=== PATIENT | female | born 1945 | race Caucasian/White ===

== ENCOUNTER → 2017-11-03 | Outpatient (CLI) | payer BC ==
[2017-11-03 12:46] LABS: BASO % 0.7 %; BASO ABS # 0.06 K/uL (0-0.2); EOS % 9.5 %; EOS ABS # 0.82 K/uL (0-0.5); HEMATOCRIT 43.9 % (37-47); HEMOGLOBIN 14.5 g/dL (12.0-16.0); IG# 0.01 K/uL (0.00-0.02); LYMPH % 19.6 %; LYMPH ABS # 1.69 K/uL (1.2-3.4); MEAN CELL VOLUME 88.9 fL (80-100); MEAN CORPUSCULAR HEMOGLOBIN 29.4 pg (25-34); MEAN PLATELET VOLUME 10.4 fL (7.4-10.4); MONO % 8.7 %; MONO ABS # 0.75 K/uL (0.11-0.59); NEUT % 61.4 %; PLATELET COUNT 352 K/uL (130-400); RED CELL DISTRIBUTION WIDTH CV 13.5 % (11.5-14.5); RED CELL DISTRIBUTION WIDTH SD 44.1 fL (36.4-46.3); WHITE BLOOD COUNT 8.63 K/uL (4.8-10.8)
[2017-11-03 13:13] LABS: BLOOD UREA NITROGEN 16 mg/dl (7-18); CALCIUM 9.2 mg/dl (8.5-10.1); CARBON DIOXIDE 31 mmol/L (21-32); CREATININE 1.04 mg/dl (0.60-1.20); GLUCOSE 98 mg/dl (70-99); POTASSIUM 4.2 mmol/L (3.5-5.1); SODIUM 138 mmol/L (136-145)
[2017-11-03 13:24] LABS: CHOLESTEROL 194 mg/dl (0-200); LDL CHOLESTEROL CALCULATED 118 mg/dl
== END | disposition home or self-care (01) ==
LOC: C.LABMFLN 06:56
PROVIDERS: ATTEND Family Medicine
DX: E78.5 Hyperlipidemia, unspecified (principal)

== ENCOUNTER 2019-03-28 19:59 | Observation (INO) ==
[2019-03-28 20:48] LABS: Basophils # (auto) 0.02 K/uL (0-0.2); Basophils % (auto) 0.4 %; Eosinophils # (auto) 0.01 K/uL (0-0.5); Eosinophils % (auto) 0.2 %; Hematocrit (blood only) 39.8 % (37-47); Hemoglobin 13.6 g/dL (12.0-16.0); Lymphocytes % (auto) 21.5 %; Mean Corpuscular Hgb Conc 34.2 g/dL (32-36); Mean Corpuscular Volume 84.3 fL (80-100); Monocytes % (auto) 16.1 %; Neutrophils # (auto) 3.45 K/uL (1.4-6.5); Neutrophils % (auto) 61.8 %; Platelet Count 233 K/uL (130-400); RDW Coefficient of Variation 13.7 % (11.5-14.5); RDW Standard Deviation 42.7 fL (36.4-46.3); Red Blood Count 4.72 M/uL (4.2-5.4); White Blood Count 5.58 K/uL (4.8-10.8)
[2019-03-28 21:05] LABS: BUN Creatinine Ratio 11.2 (10-20); Calcium 9.7 mg/dl (8.5-10.1); Creatinine Clr Calc Pharmacy 31.2 ml/min; Est GFR (African American) 44.1; Potassium 3.4 mmol/L (3.5-5.1)
[2019-03-28] MEDS ORDERED: SODIUM CHLORIDE 0.9% 1000ML 1,000 ML IV ONE (21:17)
[2019-03-28] MEDS ORDERED: VANCOMYCIN HCL 1,000 MG in SODIUM CHLORIDE 0.9% 500 ML IV ONE (21:25)
[2019-03-28] MEDS ORDERED: VANCOMYCIN CONSULT ACTIVE PRN (21:25)
--- NOTE | 2019-03-28 23:09 | History & Physical Report ---
Date of Service March 28, 2019 Assessment & Plan (1) Cellulitis: 73yoF otherwise healthy presents with worsening L inner thigh cellulitis s/p insect bite 7 days ago. Cellulitis L inner thigh s/p insect bite Afebrile, no WBC elevation BCx 2 pending Started on rocephin Received vanc 1g x 1 in the ED for MRSA coverage Continue to monitor clinically for improvement HAMLET BUN/Cr 16/1.3 - baseline Cr 1 Received 1L IVF in the ED On NS 125cc/hr Hypokalemia K 3.4 KCL 20meq x 1 ordered Monitor BMP Code: Full DVT prop: low risk, SCD only, encourage ambulation Dispo: med/surg History of Present Illness Chief Complaint: Cellulitis Primary Care Provider: Aryan Bah DO 73yoF otherwise healthy presents with worsening cellulitis s/p insect bite 7 days ago. Pt reports noticed bite on L inner thigh last week wednesday, 7 days ago and applied antibiotic cream on it. However she noticed worsening redness, warmth and tenderness at site and went to see PCP yesterday. Received 1g rocephin yesterday and was started bactrim BID x 10 days today by PCP. However, today noticed erythema worsening and presented to the ED. A/w chills, nausea and lightheadedness. Denies any headache, cp, sob, abdominal pain, n/v, diarrhea/constipation, dysuria. ED course: received vanc x 1 and 1L IVFs Allergies Allergy/AdvReac Type Severity Reaction Status Date / Time No Known Allergies Allergy Verified 03/28/19 21:33 Home Medications Home Medications Medication Instructions Recorded Confirmed Type aspirin 81 mg tablet,delayed 81 mg PO DAILY #30 tab 03/27/19 03/28/19 Rx release multivitamin tablet 1 tab PO DAILY #30 tab 03/27/19 03/28/19 Rx sulfamethoxazole 800 1 tab PO BID 10 Days #20 tab 03/27/19 03/28/19 Rx mg-trimethoprim 160 mg tablet Past Med/Surg History Medical History H/O tooth extraction Surgical History Hx laparoscopic cholecystectomy Social History Preferred Language: Swedish Communication Ability: Effective Mother Superior Required: No Beliefs That Will Affect Care: None Current Living Situation: Other Current Living Situation Comment: friend lives with her in her home Other Information That Helps Us Care for You: No Feels Safe at Home: Yes Safety Concerns: Feels Safe At This Time Smoking Status: Current every day smoker Tobacco Type: cigarettes Cigarettes Per Day: 10 Do You Dip or Chew Tobacco: No Second Hand Exposure: No Hx Alcohol Use: No Hx Substance Use: No Review of Systems Review of Systems: As per HPI Physical Exam Physical Exam: General: In NAD CV: RRR, no m/r/g Pulm: CTAB equal breath sounds bilaterally Abdomen: +BS, NTTP in all quadrants, non-distended Skin: Erythematous L inner thigh cirumferential area about 15 by 15cm with central induration, warm to touch, tender to palpation, no fluctuance noted LE: no calf pain, no LE edema Results & Data Vital Signs (Past 12 Hours) Vital Signs Temp Pulse Pulse Resp BP BP Pulse Ox 03/28/19 22:44 76 18 124/68 94 03/28/19 21:30 66 18 126/59 L 97 03/28/19 20:02 36.6 C 89 18 151/81 H 94 Laboratory Results Abnormal lab results 03/28/19 03/28/19 Range/Units 20:36 20:36 [place] # (Auto) 0.90 H (0.11-0.59) K/uL Sodium 134 L (136-145) mmol/L Potassium 3.4 L (3.5-5.1) mmol/L Creatinine 1.39 H (0.6-1.2) mg/dl Glucose 114 H (70-99) mg/dl Medications Administered Current Inpatient Medications Vancomycin HCl 1,000 mg/ (Sodium Chloride) 520 mls @ 200 mls/hr IV NOW ONE; Protocol Stop: 03/29/19 00:00 Last Admin: 03/28/19 21:49 Dose: 200 mls/hr Documented by: Miscellaneous Information (Consult) 1 ea N/A UD PRN PRN Reason: Consult Stop: 04/27/19 21:24 Code Status & VTE Plan Code Status Full Supervising Physician Co-Signing Physician Notes Attending addendum: I have physically seen this patient, have supervised the medical residents activities, and agree with the H&P unless as otherwise noted. Assessment and Plan: Insect bite cellulitis left inner thigh- Received vancomycin 1 g IV in the ED. Place on ceftriaxone 1 g IV daily. Start Bactrim DS p.o. twice daily. She is showing some signs of systemic involvement. I asked her family to look around her house to see if there may be a spiders nest, as this has the look of a spider bite. She had Lyme testing done on 02/13/2019 which was negative, but would suggest ordering it again. Hypokalemia/HAMLET- Given oral potassium replacement. Continue rehydration with NS at 125 mils per hour. Repeat laboratories in a.m. Remainder of orders and notations as noted. PG Care Time/CCT Total # of Minutes Spent Total Time Spent with Patient: Total time spent is greater than 50% in coordination of care (as documented) at patient's floor/unit and/or counseling patient: Resident Activity Tracking Resident Involvement: Resident Care Provided Care Provided: Adult Hospital Medicine
[2019-03-28] MEDS ORDERED: POTASSIUM CHLORIDE 20 MEQ TABCR PO STA (23:55)
[2019-03-28] MEDS ORDERED: ONDANSETRON INJ 2 MG/ML 2 ML VIAL IV PRN (23:55)
[2019-03-28] MEDS ORDERED: ACETAMINOPHEN 325 MG TAB PO PRN (23:55)
[2019-03-29] MEDS: SODIUM CHLORIDE 0.9% 1000ML 1,000 ML IV SCH ×2 (00:24→08:55)
[2019-03-29] MEDS: cefTRIAXone SODIUM 1,000 MG in DEXTROSE 5% 50 ML IV SCH (00:24)
--- NOTE | 2019-03-29 00:42 | Emergency Department Note ---
Entered by Sylvain Antunez acting as a scribe for Akash Aguilar M.D. History of Present Illness General Chief complaint: Bite Stated complaint: BUG BITE IS GETTING WORSE L LEG Source: patient History of Present Illness Provider complaint: Bite Onset (ago): week(s) 1 Location: lower extremity and left Maximum Pain Intensity: 8 Current Pain Intensity: 8 Associated symptoms: + denies other symptoms (abd pain), + fever/chills, + loss of appetite and + other (nausea) Treatments prior to arrival: none (abx cream) The patient is a 73 year old female who presents to the Emergency Room with complaints of a bite that began 1 week ago. The patient states that 1 week ago, she noticed a small "mosquito bite" that was itchy. She adds she used antibiotic cream at that time. She states that the size of the red area has been getting worse. The patient was seen by her doctor 1 day ago, who told her if the size of the bite got bigger, to come to the ED. The patient notes that what the doctor gave her (Bactrim) has not been working. She reports some drainage from the bite initially, but not currently. She adds that she has had fevers and has not been feeling well for the past few days. The patient also notes a lack of appetite and nausea. She denies abd pain. Home Medications Home Medications Medication Instructions Recorded Confirmed Type aspirin 81 mg tablet,delayed 81 mg PO DAILY #30 tab 03/27/19 03/28/19 Rx release multivitamin tablet 1 tab PO DAILY #30 tab 03/27/19 03/28/19 Rx sulfamethoxazole 800 1 tab PO BID 10 Days #20 tab 03/27/19 03/28/19 Rx mg-trimethoprim 160 mg tablet Allergies Allergy/AdvReac Type Severity Reaction Status Date / Time No Known Allergies Allergy Verified 03/28/19 21:33 Past Med/Surg History Medical History H/O tooth extraction Surgical History Hx laparoscopic cholecystectomy Social History Preferred Language: Faroese Communication Ability: Effective Equine Breeder Required: No Beliefs That Will Affect Care: None Current Living Situation: Other Current Living Situation Comment: friend lives with her in her home Other Information That Helps Us Care for You: No Feels Safe at Home: Yes Safety Concerns: Feels Safe At This Time Smoking Status: Current every day smoker Tobacco Type: cigarettes Cigarettes Per Day: 10 Do You Dip or Chew Tobacco: No Second Hand Exposure: No Hx Alcohol Use: No Hx Substance Use: No Review of Systems See HPI for pertinent positives & negatives. and A total of 10 systems reviewed and were otherwise negative Physical Exam Vital Signs Vital Signs - 24 hr 03/28/19 20:02 03/28/19 21:30 03/28/19 22:44 Temperature 36.6 C Temperature Source Oral Sepsis Recent Fever Within 48 Hours No Sepsis New/Unexplained Change in Mental Status No Sepsis Action Taken by Nursing No Action Required Pulse Rate 89 Pulse Rate [Right Finger] 66 76 Pulse Rhythm [Right Finger] Regular Regular Pulse Strength [Right Finger] Normal Normal Respiratory Rate 18 18 18 Respiratory Effort / Characteristics Non-Labored Non-Labored Non-Labored Respiratory Depth Normal Normal Normal Respiratory Pattern Regular Regular Blood Pressure 151/81 H Blood Pressure [Right Arm] 126/59 L 124/68 Blood Pressure Mean 104 Blood Pressure Mean [Right Arm] 81 86 Blood Pressure Position [Right Arm] Sitting Sitting Pulse Oximetry 94 97 94 Oxygen Delivery Method Room Air Room Air Room Air GENERAL: Awake, alert, well-appearing, in no distress HENT: Normocephalic, atraumatic. EYES: Normal conjunctiva. Sclera non-icteric. NECK: Supple. No nuchal rigidity. RESPIRATORY: Clear to auscultation. No wheezes. Normal respiratory effort. CARDIAC: Normal rate. Normal rhythm. Extremities warm and well perfused. GI: Soft, non-distended. No tenderness to palpation. No rebound or guarding. No masses. RECTAL: Deferred. MUSCULOSKELETAL: Atraumatic. Chest examination reveals no tenderness. LOWER EXTREMITIES: Calves are equal size bilaterally and non-tender. No edema. 15 cm left inner thigh erythema, mild tenderness. NEURO: Normal sensorium. No sensory or motor deficits noted. No facial droop. SKIN: Warm and dry. No jaundice noted. Course 2015: The patient was evaluated in room B06. A complete history and physical exam was performed. 2150: I discussed the patient's case with Dr. Eduardo- [facility] Hospitalist. He will evaluate the patient for further management. Consultations Consultation #1: [id number]: I discussed the patient's case with Dr. Eduardo- [facility] Hospitalist. He will evaluate the patient for further management. Time: 21:50 Administered Medications Ceftriaxone Sodium 1,000 mg/ (Dextrose) 50 mls @ 100 mls/hr IV Q24H SABINA; Protocol Stop: 04/08/19 00:00 Last Admin: 03/29/19 00:24 Dose: 100 mls/hr Documented by: [id number] Sodium Chloride (Nss 1000ml) 1,000 mls @ 125 mls/hr IV .Q8H SABINA Stop: 04/27/19 23:54 Last Admin: 03/29/19 00:24 Dose: 125 mls/hr Documented by: [id number] Discontinued Medications Sodium Chloride (Nss 1000ml) 1,000 mls @ 999 mls/hr IV .Q1H1M ONE Stop: 03/28/19 22:17 Last Infusion: 03/28/19 23:05 Dose: 0 mls/hr Documented by: [id number] Admin: 03/28/19 21:21 Dose: 999 mls/hr Documented by: [id number] Vancomycin HCl 1,000 mg/ (Sodium Chloride) 520 mls @ 200 mls/hr IV NOW ONE; Protocol Stop: 03/29/19 00:00 Last Infusion: 03/29/19 00:28 Dose: 0 mls/hr Documented by: [id number] Admin: 03/28/19 21:49 Dose: 200 mls/hr Documented by: [id number] Potassium Chloride (Klor-Con M20) 20 meq PO NOW STA Stop: 03/28/19 23:56 Last Admin: 03/29/19 00:24 Dose: 20 meq Documented by: [id number] Medical Decision Making Differential Diagnosis Differential diagnosis: Etiologies such as contact dermatitis, viral exanthem, urticaria, allergic reaction, Chong-Greyson syndrome, toxic epidermal necrolysis, erythema multiforme, cellulitis, scabies, HSV, varicella, zoster, eczema, staph scalded skin syndrome, fungal infection, as well as others were entertained. Medical Records Attestation: I reviewed the patient's medical records. Home Medications Current Medication List: was personally reviewed by me Laboratory Data Attestation: I reviewed the patient's lab results. Result diagrams: 03/28/19 20:36 03/28/19 20:36 Lab Results 03/28/19 03/28/19 Range/Units 20:36 20:36 WBC 5.58 (4.8-10.8) K/uL RBC 4.72 (4.2-5.4) M/uL Hgb 13.6 (12.0-16.0) g/dL Hct 39.8 (37-47) % MCV 84.3 (80-100) fL MCH 28.8 (25-34) pg MCHC 34.2 (32-36) g/dL RDW Std Deviation 42.7 (36.4-46.3) fL RDW Coeff of Shruti 13.7 (11.5-14.5) % Plt Count 233 (130-400) K/uL MPV 10.0 (7.4-10.4) fL Immature Gran % (Auto) 0.0 % Neut % (Auto) 61.8 % Lymph % (Auto) 21.5 % [place] % (Auto) 16.1 % Eos % (Auto) 0.2 % Baso % (Auto) 0.4 % Immature Gran # (Auto) 0.00 (0.00-0.02) K/uL Neut # (Auto) 3.45 (1.4-6.5) K/uL Lymph # (Auto) 1.20 (1.2-3.4) K/uL [place] # (Auto) 0.90 H (0.11-0.59) K/uL Eos # (Auto) 0.01 (0-0.5) K/uL Baso # (Auto) 0.02 (0-0.2) K/uL Sodium 134 L (136-145) mmol/L Potassium 3.4 L (3.5-5.1) mmol/L Chloride 102 (98-107) mmol/L Carbon Dioxide 23 (21-32) mmol/L Anion Gap 9.0 (3-11) BUN 16 (7-18) mg/dl Creatinine 1.39 H (0.6-1.2) mg/dl Est Cr Clr Drug Dosing 31.2 ml/min Est GFR ( Amer) 44.1 Est GFR (Non-Af Amer) 38.0 BUN/Creatinine Ratio 11.2 (10-20) Glucose 114 H (70-99) mg/dl Calcium 9.7 (8.5-10.1) mg/dl Blood Pressure Blood Pressure Findings: Low blood pressure Blood Pressure Disposition: further management by hospitalist RASHEED Narrative Patient is a 73-year-old female presenting today for week of worsening left leg infection. States about a week ago she got bit by something and experiencing redness worsening erythema of the left inner thigh. Some subjective chills and some nausea. No abdominal pain or chest pain. Afebrile upon arrival here. Not taking medicine at home. Endorses itchiness. States there was a slight discharge earlier but appears dry now. Some induration ultrasound available at bedside does not show a large fluid collection. Worsening erythema extending beyond borders after ceftriaxone and Bactrim given yesterday. Basic labs and blood cultures were obtained. Again lower suspicion at this time the patient is acutely septic. Not rapidly progressive without crepitus and I doubt this is necrotizing fasciitis. She is not immunosuppressed. Did offer pain medicines even Tylenol and Benadryl if this would help with her pruritus but she declined. Discussed the patient's options of admission for further antibiotics versus a trial of Dalvance. Patient was rehydrated as she does appear slightly dehydrated. Given a fluid bolus. Discussed with the patient she declined Dalvance and was given dose of vancomycin and the hospitalist was consulted for further care. Impression & Plan Cellulitis Discharge Plan Visit Data *Final* Discharge Date/Time: 03/28/19 23:09 Chief Complaint: Bite Stated Complaint: BUG BITE IS GETTING WORSE L LEG ED Provider: Akash Aguilar Discharge Problem: Cellulitis Patient Disposition: Admitted As Inpatient Discharge Instructions Interventions: ED Discharge Assessment Last Done: 03/28/19 23:09 Discharge Problem: Cellulitis Qualifiers: Site of cellulitis: extremity Site of cellulitis of extremity: lower extremity Laterality: left Qualified Code(s): L03.116 - Cellulitis of left lower limb The scribe's documentation has been prepared under my direction and personally reviewed by me in its entirety. I confirm that the note above accurately reflects all work, treatment, procedures, and medical decision making performed by me.
--- NOTE | 2019-03-29 07:57 | Hospitalist Progress Note ---
Date of Service March 29, 2019 Assessment & Plan (1) Cellulitis: 73yoF otherwise healthy presents with worsening L inner thigh cellulitis s/p insect bite 7 days ago. Cellulitis L inner thigh s/p insect bite Afebrile, no WBC elevation BCx 2 pending Started on rocephin, patient only had 1 dose of oral Bactrim prior to coming to the hospital will continue on her Bactrim for MRSA coverage will not continue the vancomycin as started in the ED. If her wound worsens over the next 24 hours we will scrap the Bactrim ID and proceed back to Vanco if the wound continues to improve we will maintain the Bactrim as an outpatient HAMLET BUN/Cr 16/1.3 - baseline Cr 1 Received 1L IVF in the ED On NS 125cc/hr patient is eating and drinking in a more improved way will stop the maintenance fluids at this time rechecking her creatinine on 03/30 Hypokalemia K 3.4 KCL 20meq x 1 ordered Monitor BMP Code: Full DVT prop: low risk, SCD only, encourage ambulation Dispo: med/surg Subjective Patient feels better than yesterday she is better appetite the erythema around her cellulitis is not exceeded the most recent line of demarcation. Review of Systems Review of Systems: ROS: well nourished well developed. No double vision blurry vision No problems with speech or swallowing No palpitations, chest pain or pressure No Wheezing or breathing issues No abdominal pain nausea vomiting diarrhea changes in appetite or weight No burning urine urine frequency or changes in color No focal joint pain or muscle pain Patient has redness and tenderness to her left upper inner thigh No unusual bruising or bleeding No focused back pain or numbness or loss of strength No changes in memory or confusion Physical Exam Physical Exam: The patient appeared well nourished and normally developed. Vital signs as documented. Head exam is unremarkable. normocephalic, atraumatic Neck is without jugular venous distension, thyromegaly, or lymphademopathy Lungs are clear to auscultation and percussion. Cardiac exam reveals Rhythm is regular. First and second heart sounds normal. Abdominal exam reveals normal bowel sounds, no masses, no organomegaly Extremities are nonedematous and both pedal pulses are present Neurologic exam is A&Ox3, no focal deficits, strength is equal bilateral Psychologically seems neither anxious or depressed Skin Left upper inner thigh has indurated erythematous area with a central very small ulceration and it Results & Data Vital Signs (Past 12 Hours) Vital Signs Temp Pulse Pulse Resp BP BP Pulse Ox 03/29/19 07:21 36.5 C 63 18 105/64 91 03/28/19 23:55 36.7 C 74 20 135/61 91 03/28/19 22:44 76 18 124/68 94 03/28/19 21:30 66 18 126/59 L 97 03/28/19 20:02 36.6 C 89 18 151/81 H 94 PG Care Time/CCT Total # of Minutes Spent Total Time Spent with Patient: Total time spent is greater than 50% in coordination of care (as documented) at patient's floor/unit and/or counseling patient: (1) Cellulitis Laterality: left Site of cellulitis: extremity Site of cellulitis of extremity: lower extremity Qualified Code(s): L03.116 - Cellulitis of left lower limb
[2019-03-29 08:05] LABS: Lyme Ab IgG w/WB Rflx Negative (Negative); Lyme Ab IgM w/WB Rflx Negative (Negative)
[2019-03-29] MEDS: MULTIVITAMIN TAB PO SCH (08:53)
[2019-03-29] MEDS: ASPIRIN 81 MG ECTAB PO SCH (08:53)
[2019-03-29] MEDS: SULFAMETHOXAZOLE/TRIMETHOPRIM DS 800/160MG TAB PO SCH ×2 (08:54→20:41)
[2019-03-29 23:26] VITALS: PULSE 52
[2019-03-30] MEDS: cefTRIAXone SODIUM 1,000 MG in DEXTROSE 5% 50 ML IV SCH (00:07)
[2019-03-30 06:48] LABS: BUN Creatinine Ratio 12.6 (10-20); Calcium 8.7 mg/dl (8.5-10.1); Creatinine Clr Calc Pharmacy 39.8 ml/min; Est GFR (African American) 59.1; Potassium 3.8 mmol/L (3.5-5.1)
[2019-03-30 07:41] VITALS: BP 98/58; TEMP 98.1; O2SAT 98
[2019-03-30] MEDS: MULTIVITAMIN TAB PO SCH (07:41)
[2019-03-30] MEDS: ASPIRIN 81 MG ECTAB PO SCH (07:41)
[2019-03-30] MEDS: SULFAMETHOXAZOLE/TRIMETHOPRIM DS 800/160MG TAB PO SCH (07:41)
--- NOTE | 2019-03-30 14:09 | Discharge Summary ---
Date of Service March 30, 2019 Admission HPI Per Admitting Provider 73yoF otherwise healthy presents with worsening cellulitis s/p insect bite 7 days ago. Pt reports noticed bite on L inner thigh last week wednesday, 7 days ago and applied antibiotic cream on it. However she noticed worsening redness, warmth and tenderness at site and went to see PCP yesterday. Received 1g rocephin yesterday and was started bactrim BID x 10 days today by PCP. However, today noticed erythema worsening and presented to the ED. A/w chills, nausea and lightheadedness. Denies any headache, cp, sob, abdominal pain, n/v, diarrhea/constipation, dysuria. ED course: received vanc x 1 and 1L IVFs Principal Diagnosis left upper thigh cellulitis Discharge Exam erythema and induration have receeded nicely, no pain and no other issues vital signs are stable Discharge Data Allergies Allergy/AdvReac Type Severity Reaction Status Date / Time No Known Allergies Allergy Verified 03/28/19 21:33 Consultations 03/28/19 21:17 ED Decision to Admit Stat Hospital Course (1) Cellulitis: 73yoF otherwise healthy presents with worsening L inner thigh cellulitis s/p insect bite 7 days ago. Cellulitis L inner thigh s/p insect bite Afebrile, no WBC elevation BCx 2 negtive to date Started on rocephin, patient only had 1 dose of oral Bactrim prior to coming to the hospital will continue on her Bactrim as she did have great local wound improvement, will also continue cephalosporin given the concominant use of rocephin, both for one week course HAMLET resolved Hypokalemia resolved Code: Full Total Time Total Time Spent Total Time Spent (In Minutes): greater than 30 minutes were required to prepare discharge Discharge Plan Discharge Items Patient Disposition: Home - Self-Care Reason For Visit: CELLULITIS Discharge Diagnosis: skin infection of leg Discharge Goals: Decrease discomfort and Diagnostic testing Activity: Resume your previous activity Non-emergency contact: Primary Care Provider Call non-emergency contact if: you have any medication questions Follow-up/Referrals: Aryan Bah DO [Primary Care Provider] - 04/11/19 10:00 am (follow up appointment with your primary care physician) Diet: Regular Addtl Provider Instructions: continue your bactrim DS( trimethoprim/sulfamethoxizole) for one week total, take in conjunction with new RX see your primary care for follow up avoid submerging area until healed, so shower instead of bath and avoid swimming consider having yogurt or probiotic Prescriptions: New cefdinir 300 mg capsule 300 mg PO BID 5 Days Qty: 10 RF: 0 Continued aspirin [Adult Low Dose Aspirin] 81 mg tablet,delayed release (DR/EC) 81 mg PO DAILY Qty: 30 RF: 2 multivitamin [Daily Multi-Vitamin] tablet 1 tab PO DAILY Qty: 30 RF: 0 sulfamethoxazole-trimethoprim [Bactrim DS] 800-160 mg tablet 1 tab PO BID 10 Days Qty: 20 RF: 0 Stand-Alone Forms: [facility] Discharge Orders: Discharge Order (Routine); Ordered 03/30/19 Ordered By: Vince Damico Admission Data Admit Date/Time: 03/28/19 22:53 Attending Provider: Vince Damico Admit Provider: Catrachito Eduardo Primary Care Provider: Aryan Bah Other Providers: Catrachito Eduardo Service: Medical Other Interventions: Discharge Summary Assessment (RN) Last Done: 03/30/19 11:09
== END 2019-03-30 14:33 | disposition home or self-care (01) ==
LOC: 4E 19:59 → ED 19:59 → SUATTDRO 22:53 → 4E 23:09